=== PATIENT | male | born 1945 | race Caucasian/White ===

== ENCOUNTER 2016-09-11 15:48 | Outpatient (CLI) | payer MEDICARE, OTHER | END 2016-09-11 15:49 | DX: R53.83 Other fatigue (principal); E78.00 Pure hypercholesterolemia, unspecified; E55.9 Vitamin D deficiency, unspecified ==

== ENCOUNTER 2016-09-17 15:11 | Outpatient (CLI) | payer MEDICARE, OTHER | END 2016-09-17 15:12 | disposition home or self-care (01) | DX: Z86.19 Personal history of other infectious and parasitic diseases (principal) ==

== ENCOUNTER 2016-10-16 12:33 | Day surgery (SDC) | payer MEDICARE, OTHER ==
[2016-10-16] MEDS ORDERED: LACTATED RINGERS 1,000 ML IV ONE ×2 (12:46→15:15)
[2016-10-16] MEDS ORDERED: fentaNYL 250 MCG/5 ML VIAL IVP ONE (14:34)
[2016-10-16] MEDS ORDERED: MIDAZOLAM 2 MG/2 ML VIAL IVP ONE (14:34)
== END 2016-10-16 12:34 | disposition home or self-care (01) ==
PROC: 0DBH8ZX Excision of Cecum, Via Natural or Artificial Opening Endoscopic, Diagnostic (ICD-10-PCS; 2016-10-16)
PROC: 0DBK8ZX Excision of Ascending Colon, Via Natural or Artificial Opening Endoscopic, Diagnostic (ICD-10-PCS; principal; 2016-10-16 13:30)
DX: Z12.11 Encounter for screening for malignant neoplasm of colon (principal); D12.2 Benign neoplasm of ascending colon; D12.0 Benign neoplasm of cecum; I10 Essential (primary) hypertension; J45.909 Unspecified asthma, uncomplicated; Z88.0 Allergy status to penicillin; Z88.2 Allergy status to sulfonamides
CPT/HCPCS: 45380; 45385; J3010; J7120

== ENCOUNTER 2017-02-04 13:49 | Outpatient (CLI) | payer MEDICARE, OTHER ==
[2017-02-04 18:21] LABS: CHOL/HDL RATIO 3.8 (<5.0); CHOLESTEROL 218 mg/dL; HDL CHOLESTEROL 57 mg/dL; LDL/HDL RATIO 2.5 (<3.6); TRIGLYCERIDES 103 mg/dL; VLDL CHOLESTEROL 21 mg/dL
== END 2017-02-04 13:50 | disposition home or self-care (01) ==
LOC: LAB.F 13:49
PROVIDERS: ATTEND Internal Medicine
DX: E78.00 Pure hypercholesterolemia, unspecified (principal)
CPT/HCPCS: 36415; 80061

== ENCOUNTER 2017-02-22 10:57 | Outpatient (CLI) | payer MEDICARE, OTHER | END 2017-02-22 10:58 | disposition home or self-care (01) | LOC: DI 10:57 | PROVIDERS: ATTEND Internal Medicine Cardiovascular Disease | DX: R55 Syncope and collapse (principal); R00.1 Bradycardia, unspecified | CPT/HCPCS: 93306 ==

== ENCOUNTER 2017-12-02 18:16 | Emergency (ER) | payer MEDICARE, OTHER ==
[2017-12-02] MEDS ORDERED: TETANUS/DIPHTHERIA/PERTUSSIS 0.5 ML SYRINGE IM ONE (18:53)
--- NOTE | 2017-12-02 19:30 | ED Physician Documentation ---
PD HPI LOWER EXT INJURY - Stated complaint Stated Complaint: LT FOOT INJ - Chief complaint Chief Complaint: Laceration - History obtained from History obtained from: Patient - History of Present Illness PD HPI LOW EXT INJURY LOCATION: Left, Foot (accidentally cut left medial foot with tip of chainsaw. Laceration but no feeling of numbness nor weakness.) Type of injury: Laceration Where injury occurred: Home Timing - onset: Today Timing - details: Abrupt onset Review of Systems Neurologic: denies: Focal weakness, Numbness, Near syncope PD PAST MEDICAL HISTORY - Past Medical History Past Medical History: Yes Cardiovascular: None Respiratory: Other Endocrine/Autoimmune: None GI: GERD, Colon polyps : Benign prostate hypertrophy HEENT: Other Musculoskeletal: None Derm: None - Past Surgical History Past Surgical History: Yes General: Appendectomy HEENT: Tonsil/Adenoidectomy - Present Medications Home Medications: Ambulatory Orders Medication Instructions Recorded Confirmed Cholecalciferol [Vitamin D3] 5,000 unit PO DAILY 10/16/16 10/16/16 Ibuprofen [Advil] 200 mg PO ONCE 10/16/16 10/16/16 [place]-3/Dha/Epa/Fish Oil [[place]-3 1 each PO DAILY 10/16/16 10/16/16 Fish Oil EC 1,000 mg] Tamsulosin HCl [Flomax] 0.4 mg PO DAILY 10/16/16 10/16/16 - Allergies Allergies/Adverse Reactions: Allergies Allergy/AdvReac Type Severity Reaction Status Date / Time No Known Drug Allergies Allergy Verified 12/02/17 18:30 - Social History Does the pt smoke?: No Smoking Status: Never smoker PD ED PE NORMAL - Vitals Vital signs reviewed: Yes - General General: Alert and oriented X 3, No acute distress, Well developed/nourished - Derm Derm: Normal color, Warm and dry - Extremities Extremities: Other (left medial arch of foot with laceration to fatty layer. No FB and not deep structures. Good ROM fo the foot and great toe. Lac is 3 cm and with ragged edges. ) Results - Vitals Vitals: Oxygen O2 Source Room air Procedures - Laceration (location) left foot medial arch Length in cm: 3 Wound type: Curved Neurovascular status: Sensory intact, Motor intact, Vascular intact Tendon involvement: No: Tendon Injury Anesthesia: Lidocaine 1% with epi Wound Preparation: Irrigated copiously NS, Wound edges modified Deep layer closure: Vicryl, size #-0 - enter number (5), # sutures - enter number (4) Skin layer closure: Nylon, Size #-0 - enter number (4), Sutures - enter # (15) Other: Patient tolerated well, No complications, Neurovascular intact, Dressing applied, Tetanus UTD Complexity: Simple PD MEDICAL DECISION MAKING - ED course Complexity details: considered differential, d/w patient - Sepsis Event Vital Signs: Oxygen O2 Source Room air Departure - Departure Disposition: 01 Home, Self Care Clinical Impression: Foot laceration Qualifiers: Encounter type: initial encounter Laterality: left Qualified Code(s): S91.312A - Laceration without foreign body, left foot, initial encounter Condition: Stable Record reviewed to determine appropriate education?: Yes Instructions: ED Laceration Foot Follow-Up: Gustavo Lock MD [Primary Care Provider] - Comments: It is okay to wash and shower. Clean off the wound twice a day with soap and water, or peroxide and water. Apply some antibiotic ointment to it to keep it moist. Also to watch for signs of infection such as purulence, redness or increasing pain. Return to your primary care or the ER at the specified time for suture removal. Suture removal 12-14 days. Tylenol or ibuprofen if needed for pains. Discharge Date/Time: 12/02/17 20:29
[2017-12-02 20:20] VITALS: BP 134/70
== END 2017-12-02 20:29 | disposition home or self-care (01) ==
LOC: ED 18:16
DX: S91.312A Laceration without foreign body, left foot, initial encounter (principal); W29.3XXA Contact with powered garden and outdoor hand tools and machinery, initial encounter; Y92.009 Unspecified place in unspecified non-institutional (private) residence as the place of occurrence of the external cause
CPT/HCPCS: 12002; 90471; 99283

== ENCOUNTER 2018-03-16 15:28 | Outpatient (CLI) | payer MEDICARE, OTHER ==
[2018-03-16 18:22] LABS: BUN - BLOOD UREA NITROGEN 19 mg/dL (6-20); CALCIUM 8.7 mg/dL (8.5-10.3); CARBON DIOXIDE - CO2 28 mmol/L (21-32); CHLORIDE 102 mmol/L (101-111); CHOL/HDL RATIO 3.6 (<5.0); CHOLESTEROL 197 mg/dL; CREATININE 0.9 mg/dL (0.6-1.2); GFR - MDRD 83 (>89); GLUCOSE 100 mg/dL (70-100); HDL CHOLESTEROL 54 mg/dL; LDL CHOLESTEROL,CALCULATED 130 mg/dL; LDL/HDL RATIO 2.4 (<3.6); SODIUM 138 mmol/L (135-145); VLDL CHOLESTEROL 13 mg/dL
== END 2018-03-16 15:29 | disposition home or self-care (01) ==
LOC: LAB.F 15:28
PROVIDERS: ATTEND Internal Medicine
DX: E78.00 Pure hypercholesterolemia, unspecified (principal)
CPT/HCPCS: 36415; 80048; 80061; 83721

== ENCOUNTER 2018-06-01 12:12 | Outpatient (CLI) | payer MEDICARE, OTHER ==
[2018-06-02 11:12] LABS: HEPATITIS C ANTIBODY REACTIVE (NON-REACTIVE)
[2018-06-03 19:57] LABS: HCV RNA QNT <1.18 NOT DETECTED Log IU/mL (NOT DETECTED); HCV RNA QUANT RT PCR <15 NOT DETECTED IU/mL (NOT DETECTED)
== END 2018-06-01 12:13 | disposition home or self-care (01) ==
LOC: LAB 12:12
PROVIDERS: ATTEND Family Medicine
DX: Z20.5 Contact with and (suspected) exposure to viral hepatitis (principal)
CPT/HCPCS: 36415; 86803; 87522

== ENCOUNTER 2019-03-23 18:06 | Outpatient (CLI) | payer MEDICARE, OTHER ==
[2019-03-23 18:32] LABS: BASOPHILS # (AUTO) 0.1 10^3/uL (0.0-0.1); BASOPHILS % (AUTO) 0.9 %; EOSINOPHILS # (AUTO) 0.2 10^3/uL (0.0-0.7); EOSINOPHILS % (AUTO) 2.4 %; HGB - HEMOGLOBIN 15.1 g/dL (14.0-18.0); LYMPHOCYTES # (AUTO) 1.1 10^3/uL (1.5-3.5); LYMPHOCYTES % (AUTO) 10.9 %; MEAN CORPUSCULAR HGB CONC 33.3 g/dL (32.0-36.0); MEAN PLATELET VOLUME 9.9 fL (7.4-11.4); MONOCYTES # (AUTO) 0.6 10^3/uL (0.0-1.0); MONOCYTES % (AUTO) 5.7 %; NEUTROPHILS # (AUTO) 7.7 10^3/uL (1.5-6.6); NEUTROPHILS % (AUTO) 79.5 %; PLT - PLATELET COUNT 193 10^3/uL (130-450); RED BLOOD COUNT 4.72 10^6/uL (4.70-6.10); RED CELL DISTRIBUTION WIDTH 11.8 % (12.0-15.0); WHITE BLOOD COUNT 9.7 x10^3/uL (4.8-10.8)
[2019-03-23 18:50] LABS: ALBUMIN 4.4 g/dL (3.2-5.5); ALBUMIN/GLOBULIN RATIO 1.8 (1.0-2.2); ALKALINE PHOSPHATASE 41 IU/L (42-121); ALT ALANINE AMINOTRANSFERASE 21 IU/L (10-60); AST ASPARTATE AMINOTRANSFERASE 23 IU/L (10-42); BILIRUBIN,TOTAL 1.1 mg/dL (0.2-1.0); BUN - BLOOD UREA NITROGEN 16 mg/dL (6-20); CALCIUM 9.2 mg/dL (8.5-10.3); CARBON DIOXIDE - CO2 29 mmol/L (21-32); CHLORIDE 101 mmol/L (101-111); CHOL/HDL RATIO 3.5 (<5.0); CHOLESTEROL 201 mg/dL; CREATININE 0.9 mg/dL (0.6-1.2); GFR - MDRD 82 (>89); GLUCOSE 98 mg/dL (70-100); HDL CHOLESTEROL 57 mg/dL; LDL CHOLESTEROL,CALCULATED 129 mg/dL; LDL/HDL RATIO 2.3 (<3.6); SODIUM 138 mmol/L (135-145); TOTAL PROTEIN 6.9 g/dL (6.7-8.2); VLDL CHOLESTEROL 15 mg/dL
== END 2019-03-23 18:07 | disposition home or self-care (01) ==
LOC: LAB 18:06
PROVIDERS: ATTEND Family Medicine
DX: R76.0 Raised antibody titer (principal); N40.1 Benign prostatic hyperplasia with lower urinary tract symptoms; M15.9 Polyosteoarthritis, unspecified; K21.9 Gastro-esophageal reflux disease without esophagitis
CPT/HCPCS: 36415; 80053; 80061; 83721; 84443; 85025

== ENCOUNTER 2019-04-02 17:09 | Outpatient (CLI) | payer MEDICARE, OTHER | END 2019-04-02 17:10 | disposition home or self-care (01) | LOC: LAB 17:09 | PROVIDERS: ATTEND Family Medicine | DX: R76.0 Raised antibody titer (principal) | CPT/HCPCS: 36415; 81599; 86704; 87902 ==

== ENCOUNTER 2019-04-13 12:51 | Outpatient (CLI) | payer MEDICARE, OTHER ==
[2019-04-13 14:04] LABS: FOLATE 14.2 ng/mL (5.90 - >24.8)
== END 2019-04-13 12:52 | disposition home or self-care (01) ==
LOC: LAB 12:51
PROVIDERS: ATTEND Family Medicine
DX: K21.9 Gastro-esophageal reflux disease without esophagitis (principal); R41.3 Other amnesia; M15.9 Polyosteoarthritis, unspecified; N40.1 Benign prostatic hyperplasia with lower urinary tract symptoms; N13.8 Other obstructive and reflux uropathy; E78.00 Pure hypercholesterolemia, unspecified
CPT/HCPCS: 36415; 82607; 82746; 85651

== ENCOUNTER 2019-10-24 15:33 | Outpatient (CLI) | payer MEDICARE, OTHER | END 2019-10-24 15:34 | disposition EMS.NT | LOC: EMS 15:33 | PROVIDERS: ATTEND Surgery | DX: R55 Syncope and collapse (principal); R53.1 Weakness; R42 Dizziness and giddiness; R61 Generalized hyperhidrosis ==

== ENCOUNTER 2020-02-01 14:07 | Outpatient (CLI) | payer MEDICARE, OTHER ==
--- NOTE | 2020-02-01 15:31 | SLEEP CARE CONSULTATION ---
Information from patient questionnaire entered by Nuha Cadet. I have reviewed and concur with the information entered by Nuha Cadet. This document represents the service I personally performed and the decisions made by me, Deven Jauregui MD, [facility]. History of Present Illness Service Date and Time: 02/01/2020 1407 Reason for Visit: New patient Chief Complaint: reports: Snoring, Observed pauses in breathing Date of Onset: 7 years Usual bedtime: 1 am Time it takes to fall asleep: 15 mins Snores at night: Yes Observed to quit breathing while asleep: Yes Sleeps alone due to snoring: No Number of times waking at night: 1 Reasons for waking at night: reports: Bathroom Toss, Turn, or Twitch while sleeping: Yes Recalls having dreams: Yes Usually gets out of bed at: 10 am Feels refreshed in the morning: No Morning headache: No Sleepy or fatigued during the day: Yes Ever fallen asleep while driving: No Takes day naps: Yes (sometimes) Dreams during day naps: Yes Prior sleep studies: Yes Year and Where: 2013 - [facility] Additional HPI information: I had the pleasure of seeing Mr. Grossman today regarding the possibility of him having a sleep disorder. As you know, he is a 74 year old gentleman who complains of loud snore. He had a home sleep apnea test (ALISA) done in 2013 that was interpreted as mild obstructive sleep apnea-hypopnea with an AHI of 8. However, the report appears to be computer generated and incomplete. No treatment was prescribed. He now would like to be retested. 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 Patient is and lives in [place]. Have you smoked in the past 12 months: No Years of smokin Quit date: senior in high school Alcohol use: No Caffeine use: Yes Caffeine amount and frequency: once a week Family History Family history of sleep disordered breathing: Yes (sister) Family Hx Sleep Apnea: Sibling: Sleep apnea - Treated Allergies and Home Medications Drug allergies reviewed: Yes Home medication list reviewed: Yes Review of Systems Weight loss over past 5 years: 10 Cardiovascular: denies: high blood pressure, palpitations, chest pain, irregular heart rate or pulse, leg or foot swelling, have to sleep sitting up, other Respiratory: denies: shortness of breath, wheeze, sputum production, chronic cough, other Gastrointestinal: reports: heartburn, abdominal pain Urinary: reports: frequency, urgency Neurological: denies: headaches, seizure, head trauma, disorientation, speech dysfunction, gait or balance problems, fainting or unconsciousness, other Psychiatric: reports: anxiety, depression Ear/Nose/Throat: reports: nasal congestion, wisdom teeth removed Endocrine: reports: sluggishness, unexplained weakness Musculoskeletal: reports: joint pain, neck pain, back pain, muscle pain or cramping Immunologic: denies: sneezing, rash, itching, allergies to food or environment, other Physical Exam Vital signs obtained and entered by: Detailed physical exam was not performed to comply with the COVID precautn Height: 5 ft 7 in Weight: 171 lb Body Mass Index: 26.7 BMI Classification: Overweight Impression and Plan IMPRESSION: 1. Obstructive Sleep Apnea-Hypopnea Syndrome, mild by a home sleep apnea test (HSAT) 7 years ago. He appears to be mildly symptomatic for loud snore only. I recommend proceeding to an in-laboratory polysomnography to confirm the diagnosis and to reassess severity. The patient, however, would like to have another home sleep apnea test (HSAT) because does not think he could sleep in the laboratory environment. Plan: 1. Schedule a home sleep apnea test (HSAT). 2. Return in 1 to 2 weeks after the study to discuss results and initiate therapy. Visit Type: In Office Time Spent with Patient (minutes): 15 Provider Statement: I spent 100% of the Face to Face Visit with the patient with greater than 50% spent counseling the patient and coordination of care.
== END 2020-02-01 14:08 | disposition home or self-care (01) ==
LOC: SC 14:07
PROVIDERS: ATTEND Internal Medicine Pulmonary Disease
DX: R06.81 Apnea, not elsewhere classified (principal); R06.83 Snoring; F32.9 Major depressive disorder, single episode, unspecified; E66.3 Overweight; Z68.26 Body mass index [BMI] 26.0-26.9, adult
CPT/HCPCS: 99203; G0463; 99212

== ENCOUNTER 2020-02-29 19:30 | Outpatient (CLI) | payer MEDICARE, OTHER | END 2020-02-29 23:59 | disposition home or self-care (01) | LOC: SC 19:30 | PROVIDERS: ATTEND Internal Medicine Pulmonary Disease | DX: G47.33 Obstructive sleep apnea (adult) (pediatric) (principal) | CPT/HCPCS: G0399 ×2; 95806 ==

== ENCOUNTER 2020-03-15 13:02 | Outpatient (CLI) | payer MEDICARE, OTHER ==
--- NOTE | 2020-03-15 13:45 | SLEEP CARE CONSULTATION ---
Information from patient questionnaire entered by Nav Cotto. I have reviewed and concur with the information entered by Nav Cotto. This document represents the service I personally performed and the decisions made by me, Rachele Garcia ARNP. History of Present Illness Service Date and Time: 03/15/2020 1302 Initial [place] Sleepiness Scale score: 8 (in 2020) Current [place] Sleepiness Scale score: 5 Additional HPI information: JUAN JOSUE returns for follow up and results of the recently performed home sleep study. I explained the pathophysiology behind obstructive sleep apnea. We then spent quite a bit of time discussing different treatment options. For mild obstructive sleep apnea, surgery and oral appliance are alternatives to nasal CPAP therapy but in moderate or severe cases, nasal CPAP is the most effective and reliable treatment. Because apnea is primarily in supine position, then positional management therapy could be effective. Methods discussed such as positioning with pillows, using a T-shirt with tennis balls in the back, and shown commercial products that have a pillow format on back to prevent supine sleep. I reviewed the impact of weight changes on sleep apnea and strongly recommended losing weight. After some discussion, the patient opted to go with the nasal CPAP therapy. Nasal autoCPAP set at [id number] will be ordered with rationale explained. A manual titration study will be ordered if unable to find optimal pressure with office adjustments. I explained how CPAP machine works with sample devices RespirXiami Radios Dreamstation and Pawngo [id number] and what to expect when using the machine. Using CPAP every night in order to get used to it was emphasized. Patient advised to put CPAP mask on before getting into bed so as not to fall asleep without CPAP. To assist acclimation to CPAP use, it could also be used for a short time during day while reading or watching TV. The patient was instructed to call the CPAP supplier to discuss any mechanical problem that may occur. If the mask given is uncomfortable or is difficult to keep on through the night even with adjustment, contact the CPAP supplier as many will replace with another mask style if notified before 30 days. If snoring or perceives is not getting enough air or too much air from the machine, notify this office. [facility] patient education PAP tips reviewed and given to patient. Patient counseled not drink alcohol less than 4 hours before bedtime as it can increase snoring and apnea. Patient was cautioned about risks of drowsy driving until sleepiness symptoms resolve. Sleep Study - Results Type of Sleep Study: Home sleep study Prior sleep studies: Yes Year and Where: 2012 [facility] Polysomnography/Home Sleep Study results: Based on 4% Calculation: The AHI4% calculation of 13.5 per hour of recording time was based on a total of 26 scored apneas and 50 scored hypopneas with 4% desaturations. Supine AHI4%: 15.7 per hour. Non-supine AHI4%: 0.0 per hour. Oxygen Summary: Patient's baseline O2 saturation was 93.1 %. The patient spent 28.4 minutes at an oxygen saturation less than 90%, and 3.1 minutes less than 85%. The desaturation index was 16.0 events per hour sleep time. The lowest saturation was 78.1 %. SNORING: The percent of the study time spent snoring was 74.8 %. The Snoring Count was 5654 . The Snoring Index was 1003.7 . PULSE RATE REVIEW: The mean heart rate was 51 beats per minute. The rate ranged from a low of 42 to a high of 72 beats per minute. DIAGNOSIS CODE: Obstructive Sleep Apnea G47.33 This patient has mild obstructive sleep apnea associated with moderate hypo xemia. Allergies and Home Medications Drug allergies reviewed: Yes (NKDA) Home medication list reviewed: Yes (eye steroid drops) Review of Systems Review of systems same as previous: No (catarac surgery twice this month) Physical Exam Heart Rate: 56 O2 Saturation: 98 Height: 5 ft 7 in Weight: 170 lb Body Mass Index: 26.6 BMI Classification: Overweight Impression and Plan 1. Obstructive Sleep Apnea-Hypopnea Syndrome, mild, with lowest oxygen saturation of 78.1%. Obviously this is the cause of the patients symptoms of unrefreshed sleep, and excessive daytime sleepiness. Positive pressure therapy could benefit his anxiety and GERD. As mentioned above, the patient will be started on nasal autoCPAP therapy with pressure set at 4-15 cmH2O. A manual titration study will be completed if unable to find optimal treatment pressure with office adjustments. Compliance guidelines also reviewed. A copy of compliance guidelines will be given for reference at check out. Because the apnea is more severe supine, I instructed to avoid sleeping supine using pillow positioning until able to start CPAP use. * Nasal auto CPAP therapy, pressure at 4-15 cm H2O. * Attempt to lose weight. * Avoid alcohol consumption near bedtime. * Avoid supine sleep until using CPAP. * The patient is again cautioned about driving until sleepiness completely resolves. * Return one month after CPAP obtained. I will assess response to therapy and compliance at that time. Visit Type: In Office Time Spent with Patient (minutes): 25 Provider Statement: I spent 100% of the Face to Face Visit with the patient with greater than 50% spent counseling the patient and coordination of care.
== END 2020-03-15 13:03 | disposition home or self-care (01) ==
LOC: SC 13:02
PROVIDERS: ATTEND Nurse Practitioner Family
DX: G47.33 Obstructive sleep apnea (adult) (pediatric) (principal); E66.3 Overweight; Z68.26 Body mass index [BMI] 26.0-26.9, adult
CPT/HCPCS: 99213; G0463; 99212

== ENCOUNTER 2020-06-13 12:31 | Outpatient (CLI) | payer MEDICARE, OTHER ==
--- NOTE | 2020-06-14 09:19 | Mammography Report ---
MALE BILATERAL DIGITAL DIAGNOSTIC MAMMOGRAM 3D/2D: 06/13/2020 CLINICAL: Occasional left breast pain. No prior exams were available for comparison. There is mild gynecomastia in both breasts in the sub-areolar depth, which is greater on the left and correlates with the reported pain. No significant masses, calcifications, or other findings are seen in either breast. IMPRESSION: BENIGN There is no mammographic evidence of malignancy. Mild bilateral gynecomastia is slightly worse on th e left. Recommend clinical correlation for causes of gynecomastia. This exam was interpreted at Station ID: [id number]. NOTE: For mammograms, a report in lay terms will be sent to the patient. Approximately 15% of breast malignancies will not be visualized mammographically. In the management of a palpable breast mass, a negative mammogram must not discourage biopsy of a clinically suspicious lesion. Electronically Signed By: Kushal Mohamud M.D. ar/:06/13/2020 14:16:37 ACR BI-RADS Category 2: Benign Finding(s) 3342F PARENCHYMAL PATTERN: (F) - The breast(s) demonstrate(s) diffuse fatty replacement. BI-RADS CATEGORY: (2) - 2 Unspecified - other recall n/a LATERALITY: (B)
== END 2020-06-13 12:32 | disposition home or self-care (01) ==
LOC: DI 12:31
PROVIDERS: ATTEND Family Medicine
DX: N64.4 Mastodynia (principal)

== ENCOUNTER 2021-05-22 10:57 | Outpatient (CLI) | payer MEDICARE, OTHER ==
[2021-05-22 11:22] LABS: BASOPHILS # (AUTO) 0.1 10^3/uL (0.0-0.1); BASOPHILS % (AUTO) 1.9 %; EOSINOPHILS # (AUTO) 0.3 10^3/uL (0.0-0.7); EOSINOPHILS % (AUTO) 6.4 %; HCT - HEMATOCRIT 42.7 % (42.0-52.0); HGB - HEMOGLOBIN 14.4 g/dL (14.0-18.0); LYMPHOCYTES # (AUTO) 1.1 10^3/uL (1.5-3.5); LYMPHOCYTES % (AUTO) 20.5 %; MEAN CORPUSCULAR HGB CONC 33.7 g/dL (32.0-36.0); MEAN CORPUSCULAR VOLUME 94.9 fL (80.0-94.0); MONOCYTES # (AUTO) 0.5 10^3/uL (0.0-1.0); MONOCYTES % (AUTO) 9.2 %; NEUTROPHILS # (AUTO) 3.3 10^3/uL (1.5-6.6); NEUTROPHILS % (AUTO) 61.8 %; PLT - PLATELET COUNT 181 10^3/uL (130-450); RED CELL DISTRIBUTION WIDTH 11.7 % (12.0-15.0); WHITE BLOOD COUNT 5.3 x10^3/uL (4.8-10.8)
[2021-05-22 11:53] LABS: ALBUMIN 4.4 g/dL (3.2-5.5); ALBUMIN/GLOBULIN RATIO 1.8 (1.0-2.2); ALKALINE PHOSPHATASE 39 IU/L (42-121); ALT ALANINE AMINOTRANSFERASE 24 IU/L (10-60); AST ASPARTATE AMINOTRANSFERASE 27 IU/L (10-42); BILIRUBIN,DIRECT 0.2 mg/dL (0.1-0.5); BILIRUBIN,TOTAL 1.3 mg/dL (0.2-1.0); BUN - BLOOD UREA NITROGEN 21 mg/dL (6-20); CARBON DIOXIDE - CO2 28 mmol/L (21-32); CHLORIDE 101 mmol/L (101-111); CHOL/HDL RATIO 3.2 (<5.0); CHOLESTEROL 187 mg/dL; CREATININE 0.9 mg/dL (0.6-1.2); GFR - MDRD 82 (>89); GLUCOSE 107 mg/dL (70-100); HDL CHOLESTEROL 58 mg/dL; LDL CHOLESTEROL,CALCULATED 117 mg/dL; POTASSIUM 3.9 mmol/L (3.5-5.0); SODIUM 137 mmol/L (135-145); TOTAL PROTEIN 6.8 g/dL (6.7-8.2); TRIGLYCERIDES 62 mg/dL; VLDL CHOLESTEROL 12 mg/dL
[2021-05-22 12:04] LABS: THYROID STIMULATING HORMONE 2.57 uIU/mL (0.34-5.60)
== END 2021-05-22 10:58 | disposition home or self-care (01) ==
LOC: LAB 10:57
PROVIDERS: ATTEND Internal Medicine
DX: Z00.00 Encounter for general adult medical examination without abnormal findings (principal); E78.00 Pure hypercholesterolemia, unspecified; R76.0 Raised antibody titer; R53.83 Other fatigue; Z12.5 Encounter for screening for malignant neoplasm of prostate; G47.33 Obstructive sleep apnea (adult) (pediatric); K21.9 Gastro-esophageal reflux disease without esophagitis
CPT/HCPCS: 36415; 80053; 80061; 80076; 83721; 84443; 85025; 87522

== ENCOUNTER 2021-06-24 14:52 | Outpatient (CLI) | payer MEDICARE, OTHER | END 2021-06-24 14:53 | disposition critical access hospital (66) | LOC: EMS 14:52 | DX: Z04.3 Encounter for examination and observation following other accident (principal); R41.0 Disorientation, unspecified; M54.2 Cervicalgia; M54.6 Pain in thoracic spine; R20.0 Anesthesia of skin | CPT/HCPCS: A0425; A0429 ==

== ENCOUNTER 2021-06-24 15:23 | Emergency (ER) | payer MEDICARE, OTHER ==
--- NOTE | 2021-06-24 15:42 | ED Physician Documentation ---
History of Present Illness - Stated complaint Stated Complaint: FALL FROM LADDER - Chief complaint Chief Complaint: Trauma Ch/Bk - History obtained from History obtained from: Patient, EMS - History of Present Illness Pain level max: 6 Pain level now: 5 - Additonal information Additional information: Patient is a 76-year-old male who was on a ladder today taken down his [place] lights when he fell off of the ladder, striking the back of his head. Unknown loss of consciousness. Complains of pain to the back of his head and neck. Also pain to the upper thoracic spine area/back. Worse with movement, better with rest. Placed in a cervical collar and backboarded with EMS. He is not on any blood thinners. Tetanus up-to-date. Initially had mild tingling to his bilateral hands, he states that this is now resolved. No loss of bowel or bladder control. No numbness or tingling in the bilateral lower extremities. Review of Systems Ten Systems: 10 systems reviewed and negative Constitutional: denies: Fever, Chills Nose: denies: Rhinorrhea / runny nose, Congestion Respiratory: denies: Cough GI: denies: Vomiting, Diarrhea Musculoskeletal: reports: Neck pain, Back pain (upper) Neurologic: reports: Head injury. denies: Confused, LOC PD PAST MEDICAL HISTORY - Past Medical History Cardiovascular: None Respiratory: Other Endocrine/Autoimmune: None GI: GERD, Colon polyps : Benign prostate hypertrophy HEENT: Other Musculoskeletal: None Derm: None - Past Surgical History Past Surgical History: Yes General: Appendectomy HEENT: Tonsil/Adenoidectomy - Present Medications Home Medications: Ambulatory Orders Medication Instructions Recorded Confirmed Cholecalciferol [Vitamin D3] 5,000 unit PO DAILY 10/16/16 10/16/16 Ibuprofen [Advil] 200 mg PO ONCE 10/16/16 10/16/16 [place]-3/Dha/Epa/Fish Oil [[place]-3 1 each PO DAILY 10/16/16 10/16/16 Fish Oil EC 1,000 mg] Tamsulosin HCl [Flomax] 0.4 mg PO DAILY 10/16/16 10/16/16 Meloxicam [Mobic] 15 mg PO DAILY PRN #20 tablet 06/24/21 methocarbamoL [Robaxin] 500 mg PO Q6H PRN #20 tablet 06/24/21 - Allergies Allergies/Adverse Reactions: Allergies Allergy/AdvReac Type Severity Reaction Status Date / Time No Known Drug Allergies Allergy Verified 12/02/17 18:30 - Social History Does the pt smoke?: No Smoking Status: Never smoker PD ED PE NORMAL - Vitals Vital signs reviewed: Yes - General General: Alert and oriented X 3, No acute distress - HEENT HEENT: Atraumatic (Abrasion to the occiput), PERRL, Ears normal, Moist mucous membranes, Pharynx benign - Neck Neck: Supple, no meningeal sign, Other (Tender palpation midline. No step-off or deformity. Cervical collar in place) - Cardiac Cardiac: RRR - Respiratory Respiratory: No respiratory distress, Clear bilaterally - Abdomen Abdomen: Soft, Non tender, Non distended - Back Back: Other (Mild upper thoracic spine tenderness. No step-off or deformity. 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, No motor deficit, No sensory deficit, Normal speech Eye Opening: Spontaneous Motor: Obeys Commands Verbal: Oriented GCS Score: 15 - Psych Psych: Normal mood Results - Vitals Vitals: Vital Signs - 24 hr 06/24/21 15:25 Temperature 37.0 C Heart Rate 73 Respiratory 26 H Rate Blood Pressure 166/78 H O2 Saturation 98 Oxygen O2 Source Room air - Rads (name of study) head CT Radiology: Final report received, EMP read contemporaneously, See rad report c-spine CT Radiology: Final report received, EMP read contemporaneously, See rad report chest CT Radiology: Final report received, EMP read contemporaneously, See rad report PD MEDICAL DECISION MAKING - ED course Complexity details: reviewed results, re-evaluated patient, considered differential, d/w patient ED course: No acute findings on CT scan of the head, cervical spine and chest. He does have an incidental small thyroid nodule. He will follow up with his doctor as an outpatient for ultrasound. He was given Robaxin and Toradol. Feels better. Tetanus up-to-date. No lacerations to repair. No neurological deficits. GCS 15. Patient counseled regarding signs and symptoms for which I believe and urgent re-evaluation would be necessary. Patient with good understanding of and agreement to plan and is comfortable going home at this time This document was made in part using voice recognition software. While efforts are made to proofread this document, sound alike and grammatical errors may occur. Departure - Departure Disposition: 01 Home, Self Care Clinical Impression: Thyroid nodule Back strain Qualifiers: Encounter type: initial encounter Qualified Code(s): S39.012A - Strain of muscle, fascia and tendon of lower back, initial encounter Fall Qualifiers: Encounter type: initial encounter Qualified Code(s): W19.XXXA - Unspecified fall, initial encounter Closed head injury Qualifiers: Encounter type: initial encounter Qualified Code(s): S09.90XA - Unspecified injury of head, initial encounter Condition: Good Instructions: ED Head Injury Closed, ED Neck Back Pain General Follow-Up: your,doctor in 1 week [Other] Prescriptions: Meloxicam [Mobic] 15 mg PO DAILY PRN #20 tablet PRN Reason: pain methocarbamoL [Robaxin] 500 mg PO Q6H PRN #20 tablet PRN Reason: muscle spasm Comments: There is a thyroid nodule on your CT scan. This will need follow-up with an ultrasound with your doctor. Please follow-up with your doctor for further care. There are no acute traumatic findings on your CT scans. Your prescriptions were sent to [facility] in [place]. Return if you worsen
--- NOTE | 2021-06-24 16:37 | CT Report ---
PROCEDURE: HEAD WO INDICATIONS: fall, head injury TECHNIQUE: Noncontrast 4.5 mm thick angled axial sections acquired from the foramen magnum to the vertex. For r adiation dose reduction, the following was used: automated exposure control, adjustment of mA and/or kV according to patient size. COMPARISON: None. FINDINGS: Image quality: Excellent. CSF spaces: Basal cisterns are patent. No extra-axial fluid collections. Ventricles are normal in size and shape. Brain: No midline shift. No intracranial masses or hemorrhage. [place]-white matter interface is norm al. Mild vascular calcifications are noted within the proximal intracranial carotid arteries. Skull and face: Calvarium and visualized facial bones are intact, without suspicious lesions. Sinuses: Minimal right maxillary mucous retention cyst. Paranasal sinuses are otherwise clear. IMPRESSION: No acute intracranial abnormality. Reviewed by: Rei Roe DO on 06/24/2021 3:36 PM [facility] Approved by: Rei Roe DO on 06/24/2021 3:36 PM [facility] Station ID: [id number]
--- NOTE | 2021-06-24 16:43 | CT Report ---
PROCEDURE: CERVICAL SPINE WO INDICATIONS: fall, neck pain TECHNIQUE: Noncontrast 3 mm thick sections acquired from the skull base to the T4 level. Sagittal and coronal r eformats were then constructed. For radiation dose reduction, the following was used: automated exp osure control, adjustment of mA and/or kV according to patient size. COMPARISON: None. FINDINGS: Image quality: Excellent. Bones: No fractures or dislocations. Subtle irregularity along the tip of the inferior facet of the left C5 facet is favored to be degenerative in etiology. Multilevel cervical spondylopathy with diffu se intervertebral disc space loss noted from C3 through C7 with endplate degenerative changes uncover tebral joint hypertrophy and facet arthropathy. Very mild spinal canal stenosis noted at C3-C4, C4-C5 , C5-C6, and C6-C7. Varying degrees of mild to moderate bony neural foraminal stenosis. Visualized june perior ribs are intact. Soft tissues: Prevertebral soft tissues are normal in thickness. No paravertebral hematomas. No ap ical pneumothoraces. 1.5 cm right thyroid lobe hypodensity. Mild vascular calcifications within the right carotid artery at the bifurcation. Nuchal calcifications. IMPRESSION: No acute fracture or traumatic subluxation. 1.5 cm right thyroid lobe hypodensity. Recommend correlation with outside thyroid ultrasound for furt her evaluation. Reviewed by: Rei Roe DO on 06/24/2021 3:42 PM [facility] Approved by: Rei Roe DO on 06/24/2021 3:42 PM [facility] Station ID: [id number]
--- NOTE | 2021-06-24 16:50 | CT Report ---
PROCEDURE: CHEST WO INDICATIONS: fall off ladder, chest/back pain TECHNIQUE: Noncontrast 1mm axial images were acquired from the pulmonary apices to the posterior costophrenic an gles. Axial 5 mm soft tissue kernel reconstructions were performed as well as 8 mm axial MIP and cor onal and sagittal 5 mm reformations. For radiation dose reduction, the following was used: automate d exposure control, adjustment of mA and/or kV according to patient size. COMPARISON: Same day cervical spine CT FINDINGS: Image quality: Excellent. Lungs and pleura: No acute air space opacities. Dependent atelectasis. No pleural effusions or pneu mothorax. Central and peripheral airways are patent and normal in caliber. Mediastinum: Heart size is normal. Moderate multivessel coronary vascular calcifications. No perica rdial effusion. No mediastinal adenopathy by size criteria. Thoracic aorta and central pulmonary ar teries are normal in size. Esophagus is normal in caliber. No hiatal hernia. Bones and chest wall: No suspicious bony lesions. No vertebral body compression fractures. No rib fractures identified. No axillary or supraclavicular adenopathy by size criteria. 1.5 cm right thyro id lobe hypodensity again identified. Abdomen: Visualized upper abdominal solid organs and bowel loops appear normal in the absence of con trast. IMPRESSION: No acute intrathoracic abnormality. No acute osseous abnormality. 1.5 cm right thyroid lobe hypodensity. Recommend follow-up with dedicated thyroid ultrasound. Reviewed by: Rei Roe DO on 06/24/2021 3:48 PM [facility] Approved by: Rei Roe DO on 06/24/2021 3:48 PM [place] Station ID: [id number]
[2021-06-24] MEDS ORDERED: methocarbamoL 500 MG TABLET PO STA (16:55)
[2021-06-24] MEDS ORDERED: KETOROLAC 60 MG/2 ML VIAL IM STA (16:55)
[2021-06-24 17:37] VITALS: BP 158/88
== END 2021-06-24 18:11 | disposition home or self-care (01) ==
LOC: EDUNIT# → ED 15:23
DX: S09.90XA Unspecified injury of head, initial encounter (principal); S29.012A Strain of muscle and tendon of back wall of thorax, initial encounter; S00.01XA Abrasion of scalp, initial encounter; W11.XXXA Fall on and from ladder, initial encounter; Y93.89 Activity, other specified; Y92.007 Garden or yard of unspecified non-institutional (private) residence as the place of occurrence of the external cause; E04.1 Nontoxic single thyroid nodule; M47.812 Spondylosis without myelopathy or radiculopathy, cervical region
CPT/HCPCS: 70450; 71250; 72125; 96372; 99282; 99284; A9270

== ENCOUNTER 2021-07-02 09:35 | Outpatient (CLI) | payer MEDICARE, OTHER | END 2021-07-02 09:36 | disposition EMS.NT | LOC: EMS 09:35 | DX: M79.2 Neuralgia and neuritis, unspecified (principal) ==

== ENCOUNTER 2021-09-05 22:15 | Outpatient (CLI) | payer MEDICARE, OTHER ==
--- NOTE | 2021-09-06 11:56 | Ultrasound Report ---
PROCEDURE: Head or Neck Soft Tissue INDICATIONS: THYROID NODULE TECHNIQUE: Real-time scanning was performed of the thyroid gland, with image documentation. COMPARISON: None FINDINGS: Right: Thyroid lobe measures 4.4 x 1.5 x 1.5 cm, and is homogeneous in echotexture. Left: Thyroid lobe measures 3.9 x 1.3 x 1.4 cm, and is homogenous in echotexture. Isthmus: 4.6 mm thick. Nodule number: One Location: Right mid Size: 0.5 x 0.4 x 0.4 cm. Composition: Predominantly solid Echogenicity: Hypoechoic Shape: wider than tall. Margins: Smooth Echogenic foci: None Total points: 3 ACR TI-RADS category: Mildly suspicious Nodule number: Two Location: Right mid Size: 1.3 x 1.3 x 1.0 cm. Composition: Solid Echogenicity: Hypoechoic Shape: wider than tall. Margins: Smooth with halo. Echogenic foci: None Total points: 4 ACR TI-RADS category: Moderately suspicious Nodule number: Three Location: Right lateral Size: 0.3 x 0.2 x 0.3 cm. Composition: Solid Echogenicity: Hyperechoic Shape: wider than tall. Margins: Irregular Echogenic foci: Macrocalcifications Total points: 6 ACR TI-RADS category: Moderately suspicious IMPRESSION: Thyroid nodules with mildly suspicious and moderately suspicious imaging characteristics . Based on imaging characteristics in size nodule #2 follow-up ultrasound at 1, 2, 3 and 5 intervals is recommended. ACR TI-RADS definitions and recommendations: TI-RADS 1 (benign): 0 points. FNA not needed. TI-RADS 2 (not suspicious): 2 points. FNA not needed. TI-RADS 3 (mildly suspicious): 3 points. "FNA if 2.5 cm or larger, follow up if 1.5 cm or larger (at 1, 3, and 5 years). TI-RADS 4 (moderately suspicious): 4-6 points. "FNA if 1.5 cm or larger, follow up if 1 cm or larger (at 1, 2, 3, and 5 years). TI-RADS 5 (highly suspicious): 7 points or more. "FNA if 1 cm or larger, follow up if 0.5 cm or larger (every year for 5 years). Reviewed by: Carole Vera MD, PhD on 09/06/2021 11:54 AM PDT Approved by: Carole Vera MD, PhD on 09/06/2021 11:54 AM PDT Station ID: [id number]
== END 2021-09-05 22:16 | disposition home or self-care (01) ==
LOC: DI 22:15
PROVIDERS: ATTEND Family Medicine
DX: E04.2 Nontoxic multinodular goiter (principal)

== ENCOUNTER 2022-08-22 12:45 | Outpatient (CLI) | payer MEDICARE, OTHER ==
--- NOTE | 2022-08-22 18:09 | Ultrasound Report ---
PROCEDURE: Head or Neck Soft Tissue INDICATIONS: RIGHT THYROID NODULE TECHNIQUE: Real-time scanning was performed of the thyroid gland, with image documentation. COMPARISON: 09/05/2021 FINDINGS: Right: Thyroid lobe measures 4.6 x 1.8 x 1.6 cm, and is homogeneous in echotexture. Left: Thyroid lobe measures 3.7 x 1.3 x 0.9 cm, and is homogenous in echotexture. Isthmus: 4 mm thick. Nodule number: One Location: Right lobe mid/lateral Size: 0.5 x 0.3 x 0.4 cm. Previously 0.5 x 0.4 x 0.4 cm no significant change Composition: Cystic and solid Echogenicity: Hypoechoic Shape: wider than tall. Margins: Smooth Echogenic foci: None Total points: 3 ACR TI-RADS category: 3 Nodule number: Two Location: Right lobe mid Size: 1.6 x 1.1 x 1.2 cm. Previously 1.3 x 1.3 x 1.0 cm no significant change Composition: Solid Echogenicity: Hypoechoic Shape: wider than tall. Margins: Smooth Echogenic foci: None Total points: 4 ACR TI-RADS category: 4 Nodule number: Three Location: Right lobe inferior lateral Size: 0.4 x 0.4 x 0.4 cm. Previously 0.3 x 0.2 x 0.3 cm no specific change Composition: Solid Echogenicity: Hypoechoic Shape: wider than tall. Margins: Smooth Echogenic foci: Macrocalcification Total points: 5 ACR TI-RADS category: 4 IMPRESSION: Previously demonstrated nodule at the right mid thyroid gland is not significantly changed in overall size but now meets TI RADS criteria for FNA recommendation. ACR TI-RADS definitions and recommendations: TI-RADS 1 (benign): 0 points. FNA not needed. TI-RADS 2 (not suspicious): 2 points. FNA not needed. TI-RADS 3 (mildly suspicious): 3 points. "FNA if 2.5 cm or larger, follow up if 1.5 cm or larger (at 1, 3, and 5 years). TI-RADS 4 (moderately suspicious): 4-6 points. "FNA if 1.5 cm or larger, follow up if 1 cm or larger (at 1, 2, 3, and 5 years). TI-RADS 5 (highly suspicious): 7 points or more. "FNA if 1 cm or larger, follow up if 0.5 cm or larger (every year for 5 years). Reviewed by: Kushal Dorman MD on 08/22/2022 6:07 PM PST Approved by: Kushal Dorman MD on 08/22/2022 6:07 PM [facility] Station ID: [id number]
== END 2022-08-22 12:46 | disposition home or self-care (01) ==
LOC: DI 12:45
PROVIDERS: ATTEND Family Medicine
DX: E04.2 Nontoxic multinodular goiter (principal)

== ENCOUNTER 2022-10-17 14:54 | Outpatient (CLI) | payer MEDICARE, OTHER ==
[2022-10-17 20:13] LABS: BASOPHILS # (AUTO) 0.1 10^3/uL (0.0-0.1); BASOPHILS % (AUTO) 2.3 %; EOSINOPHILS # (AUTO) 0.3 10^3/uL (0.0-0.7); EOSINOPHILS % (AUTO) 4.6 %; HCT - HEMATOCRIT 44.7 % (42.0-52.0); HGB - HEMOGLOBIN 14.6 g/dL (14.0-18.0); LYMPHOCYTES # (AUTO) 1.3 10^3/uL (1.5-3.5); LYMPHOCYTES % (AUTO) 22.3 %; MEAN CORPUSCULAR HEMOGLOBIN 31.7 pg (27.0-31.0); MEAN CORPUSCULAR HGB CONC 32.7 g/dL (32.0-36.0); MEAN CORPUSCULAR VOLUME 97.2 fL (80.0-94.0); MEAN PLATELET VOLUME 10.7 fL (7.4-11.4); MONOCYTES # (AUTO) 0.5 10^3/uL (0.0-1.0); MONOCYTES % (AUTO) 8.8 %; NEUTROPHILS # (AUTO) 3.5 10^3/uL (1.5-6.6); NEUTROPHILS % (AUTO) 61.6 %; PLT - PLATELET COUNT 190 10^3/uL (130-450); WHITE BLOOD COUNT 5.7 x10^3/uL (4.8-10.8)
[2022-10-17 20:19] LABS: ALBUMIN 4.2 g/dL (3.2-5.5); ALBUMIN/GLOBULIN RATIO 1.3 (1.0-2.2); ALKALINE PHOSPHATASE 40 IU/L (42-121); ALT ALANINE AMINOTRANSFERASE 18 IU/L (10-60); AST ASPARTATE AMINOTRANSFERASE 20 IU/L (10-42); BILIRUBIN,TOTAL 1.3 mg/dL (0.2-1.0); BUN - BLOOD UREA NITROGEN 23 mg/dL (6-20); CARBON DIOXIDE - CO2 29 mmol/L (21-32); CHLORIDE 105 mmol/L (101-111); CHOL/HDL RATIO 4.1 (<5.0); CHOLESTEROL 219 mg/dL; GFR - MDRD 72 (>89); GLUCOSE 100 mg/dL (70-100); HDL CHOLESTEROL 54 mg/dL; LDL CHOLESTEROL,CALCULATED 152 mg/dL; LDL/HDL RATIO 2.8 (<3.6); POTASSIUM 4.3 mmol/L (3.5-5.0); SODIUM 141 mmol/L (135-145); TOTAL PROTEIN 7.4 g/dL (6.7-8.2); TRIGLYCERIDES 64 mg/dL; VLDL CHOLESTEROL 13 mg/dL
[2022-10-17 20:33] LABS: THYROID STIMULATING HORMONE 2.19 uIU/mL (0.34-5.60)
== END 2022-10-17 14:55 | disposition home or self-care (01) ==
LOC: LAB.S 14:54
PROVIDERS: ATTEND Family Medicine
DX: E78.00 Pure hypercholesterolemia, unspecified (principal); G45.9 Transient cerebral ischemic attack, unspecified; G47.33 Obstructive sleep apnea (adult) (pediatric); K21.9 Gastro-esophageal reflux disease without esophagitis
CPT/HCPCS: 36415; 80053; 80061; 83721; 84443; 85025

== ENCOUNTER 2022-10-23 16:57 | Outpatient (CLI) | payer MEDICARE, OTHER ==
[2022-10-23] MEDS ORDERED: iohexoL-300 100 ML VIAL ONE (17:08)
[2022-10-23] MEDS ORDERED: iohexoL-300 100 ML VIAL IVP ONE (18:18)
--- NOTE | 2022-10-24 15:42 | CT Report ---
PROCEDURE: ANGIO HEAD W/WO INDICATIONS: TIA CONTRAST: 80ml Omnipaque 300 TECHNIQUE: Precontrast 4.5 mm thick angled axial sections acquired from the foramen magnum to the vertex. Afte r the administration of intravenous contrast, 1 mm thick sections acquired through the [place] is. Postcontrast 4.5 mm thick sections then re-acquired from the foramen magnum to the vertex. 3-di mensional sgmvikz-lujndcxgr-ufdonlktbr (MIP) and/or volume rendering reformats were acquired of the c entral intracranial vasculature. For radiation dose reduction, the following was used: automated ex posure control, adjustment of mA and/or kV according to patient size. COMPARISON: CT angiogram neck 10/23/2022, CT head 06/24/2021 FINDINGS: Image quality: Excellent. Anterior circulation: Intracranial internal carotid arteries are normal in size and flow. The flow within the paired anterior cerebral arteries is normal and symmetric. The flow within the middle cer ebral arteries is normal and symmetric. The anterior communicating artery is seen. No aneurysms are seen. Posterior circulation: There is a left vertebral artery dominance. Visualized portions of the verteb ral arteries demonstrate normal caliber, and join to form a normal appearing basilar artery. Flow wi thin the posterior cerebral arteries is normal and symmetric. No aneurysms are seen. The ventricular system and cortical sulci demonstrate atrophy, consistent for patient's stated age. There are areas of hypodensity in the periventricular and subcortical white matter. There is no acut e intra or extra-axial fluid collection. No acute hemorrhage, mass lesion or midline shift. Brainst em is unremarkable. Globes are symmetrical. Sinuses are aerated. Osseous structures are intact. IMPRESSION: 1. No acute intracranial process. 2. Moderate atrophy and chronic microvascular ischemic changes. 3. No areas of hemodynamically significant stenosis, vascular occlusion or aneurysmal dilation within the anterior or posterior circulation. Reviewed by: tEhel Chirinos MD on 10/24/2022 3:41 PM PDT Approved by: Ethel hCirinos MD on 10/24/2022 3:41 PM PDT Station ID: [id number]
--- NOTE | 2022-10-24 15:48 | CT Report ---
PROCEDURE: ANGIO NECK W INDICATIONS: TIA CONTRAST: 80ml Omnipaque 300 TECHNIQUE: After the administration of intravenous contrast, 1.5 mm axial sections acquired from the aortic arch to the [place]. Coronal 3-D maximum intensity projection (MIP) and/or volume rendering ref ormats were then performed. For radiation dose reduction, the following was used: automated exposur e control, adjustment of mA and/or kV according to patient size. COMPARISON: CTA head 10/23/2022, CT head 06/24/2021 FINDINGS: Image quality: Excellent. Carotid system: The great vessels demonstrate a conventional anatomy as they arise from the aortic a rch. The origins of the common carotid arteries appear patent. The common carotid arteries demonstr ate normal calibers and courses. The bifurcation regions appear normal bilaterally. The internal ca rotid arteries demonstrate normal caliber and course. Posterior circulation: The origins of the vertebral arteries appear patent. The more superior porti ons of the vertebral arteries demonstrate normal course and caliber. They join to form a normal appe aring basilar artery. Soft tissues: Visualized neck soft tissues demonstrate no suspicious abnormalities. The thyroid is normal in size and there are no incidental findings. Bones: No suspicious bony lesions. Visualized cervical spine appears normally aligned. IMPRESSION: There are no areas of hemodynamically significant stenosis, vascular occlusion or aneurysmal dilation within the neck vasculature. The estimate of stenosis included in the report of the imaging study was calculated using the NASCET method CLINICAL RECOMMENDATION STATEMENTS: In patients <35 years with an ITN detected on CT, MRI, or extrathyroidal ultrasound, the Committee re commends further evaluation with dedicated thyroid ultrasound if the nodule is "e1 cm and has no susp icious imaging features, and if the patient has normal life expectancy. In patients "e35 years with an ITN detected on CT, MRI, or extrathyroidal ultrasound, the Committee r ecommends further evaluation with dedicated thyroid ultrasound if the nodule is "e1.5 cm and has no s uspicious imaging features, and if the patient has normal life expectancy. (ACR, 2014) Reviewed by: Ethel Chirinos MD on 10/24/2022 3:47 PM PDT Approved by: Ethel Chirinos MD on 10/24/2022 3:47 PM PDT Station ID: [id number]
== END 2022-10-23 16:58 | disposition home or self-care (01) ==
LOC: DI 16:57
PROVIDERS: ATTEND Family Medicine
DX: G45.9 Transient cerebral ischemic attack, unspecified (principal); G31.89 Other specified degenerative diseases of nervous system; I67.82 Cerebral ischemia
CPT/HCPCS: 70496; 70498; Q9967

== ENCOUNTER 2022-12-11 07:55 | Outpatient (CLI) | payer MEDICARE, OTHER | END 2022-12-11 07:56 | disposition home or self-care (01) | LOC: DI 07:55 | PROVIDERS: ATTEND Family Medicine | DX: G45.9 Transient cerebral ischemic attack, unspecified (principal); I49.1 Atrial premature depolarization; I51.7 Cardiomegaly | CPT/HCPCS: 93306 ==

== ENCOUNTER 2024-01-14 10:38 | Outpatient (CLI) | payer MEDICARE, OTHER ==
[2024-01-14 10:49] LABS: BASOPHILS # (AUTO) 0.1 10^3/uL (0.0-0.1); BASOPHILS % (AUTO) 1.8 %; EOSINOPHILS # (AUTO) 0.2 10^3/uL (0.0-0.7); EOSINOPHILS % (AUTO) 3.9 %; HCT - HEMATOCRIT 44.7 % (42.0-52.0); HGB - HEMOGLOBIN 14.5 g/dL (14.0-18.0); LYMPHOCYTES # (AUTO) 1.1 10^3/uL (1.5-3.5); LYMPHOCYTES % (AUTO) 18.5 %; MEAN CORPUSCULAR HEMOGLOBIN 31.3 pg (27.0-31.0); MEAN CORPUSCULAR HGB CONC 32.4 g/dL (32.0-36.0); MEAN CORPUSCULAR VOLUME 96.5 fL (80.0-94.0); MEAN PLATELET VOLUME 9.9 fL (7.4-11.4); MONOCYTES # (AUTO) 0.5 10^3/uL (0.0-1.0); MONOCYTES % (AUTO) 8.2 %; NEUTROPHILS % (AUTO) 67.1 %; PLT - PLATELET COUNT 199 10^3/uL (130-450); RED BLOOD COUNT 4.63 10^6/uL (4.70-6.10); RED CELL DISTRIBUTION WIDTH 11.9 % (12.0-15.0)
[2024-01-14 11:20] LABS: ALBUMIN 4.5 g/dL (3.2-5.5); ALKALINE PHOSPHATASE 42 IU/L (42-121); ALT ALANINE AMINOTRANSFERASE 14 IU/L (10-60); AST ASPARTATE AMINOTRANSFERASE 16 IU/L (10-42); BILIRUBIN,TOTAL 0.6 mg/dL (0.2-1.0); BUN - BLOOD UREA NITROGEN 24 mg/dL (6-20); CALCIUM 9.3 mg/dL (8.5-10.3); CARBON DIOXIDE - CO2 30 mmol/L (21-32); CHLORIDE 105 mmol/L (101-111); CHOL/HDL RATIO 3.7 (<5.0); CHOLESTEROL 196 mg/dL; CREATININE 0.9 mg/dL (0.6-1.3); GFR - MDRD 81 (>89); GLUCOSE 105 mg/dL (74-104); HDL CHOLESTEROL 53 mg/dL; LDL CHOLESTEROL,CALCULATED 132 mg/dL; LDL/HDL RATIO 2.5 (<3.6); POTASSIUM 4.3 mmol/L (3.5-4.5); SODIUM 138 mmol/L (135-145); TOTAL PROTEIN 6.7 g/dL (6.4-8.9); TRIGLYCERIDES 55 mg/dL; VLDL CHOLESTEROL 11 mg/dL
[2024-01-14 11:31] LABS: THYROID STIMULATING HORMONE 2.04 uIU/mL (0.34-5.60)
== END 2024-01-14 10:39 | disposition home or self-care (01) ==
LOC: LAB 10:38
PROVIDERS: ATTEND Family Medicine
DX: E78.00 Pure hypercholesterolemia, unspecified (principal); Z12.5 Encounter for screening for malignant neoplasm of prostate; S16.1XXA Strain of muscle, fascia and tendon at neck level, initial encounter; M54.12 Radiculopathy, cervical region; G47.33 Obstructive sleep apnea (adult) (pediatric); K21.9 Gastro-esophageal reflux disease without esophagitis; N40.1 Benign prostatic hyperplasia with lower urinary tract symptoms; N13.8 Other obstructive and reflux uropathy
CPT/HCPCS: 36415; 80053; 80061; 84443; 85025; G0103; 83721; 84153